=== PATIENT | female | born 1985 | race Caucasian/White ===

== ENCOUNTER 2017-11-15 08:37 | Outpatient (CLI) | payer BC ==
--- NOTE | 2017-11-15 09:32 | CT ---
CT ABDOMEN AND PELVIS NONCONTRAST: Date: 11/15/17 HISTORY: Right flank pain. FINDINGS: No comparison. Each renal collecting system, ureter, and the urinary bladder are decompressed. A 0.3 cm calculus is present within a nondilated josh at the superior pole of the left kidney. No other urinary tract celso cifications are present. Lack of contrast limits evaluation for other abnormalities. Ligation clips are present at each adnexa . IMPRESSION: Small, nonobstructing left renal calculus. POS: LUCIA
== END 2017-11-15 08:38 | disposition home or self-care (01) ==
LOC: RAD-BREN 08:37
PROVIDERS: ATTEND Family Medicine
CPT/HCPCS: 74176